=== PATIENT | female | born 1990 | race Two or more races ===

== ENCOUNTER → 2023-10-13 10:56 | Outpatient (BNVA) | payer SELFPAY | PROVIDERS: PCP Emergency Medicine ==

== ENCOUNTER 2023-10-26 18:02 | Emergency (ER) | payer MEDICAID, SELFPAY ==
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
[2023-10-26 18:03] VITALS: BP 149/86; PULSE 100; RESP 18; TEMP 36.7; O2SAT 100; BMI 30.9
[2023-10-26 22:52] VITALS: BP 127/82; PULSE 90; RESP 18; TEMP 36.7; O2SAT 99
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
[2023-10-27 02:23] VITALS: BP 122/74; PULSE 74; RESP 18; TEMP 36.8; O2SAT 100
[2023-10-27] MEDS: Ibuprofen 800 MG TABLET PO (02:41)
[2023-10-27 02:43] VITALS: BP 122/74; PULSE 74; RESP 18; TEMP 36.8
== END 2023-10-27 02:44 | disposition home or self-care (01) ==
PROVIDERS: Emergency Provider Student in an Organized Health Care Education/Training Program
DX: S09.90XA Unspecified injury of head, initial encounter (principal); Y04.2XXA Assault by strike against or bumped into by another person, initial encounter; Y93.9 Activity, unspecified; Y92.512 Supermarket, store or market as the place of occurrence of the external cause; Y99.9 Unspecified external cause status
CPT/HCPCS: 70450; 70486; 72125; 99283; 99284

== ENCOUNTER 2024-06-13 12:22 | Emergency (ER) | payer MEDICAID, SELFPAY ==
--- NOTE | ~2024-06-13 | US_ITS ---
EXAMINATION: ULTRASOUND OF THE PELVIS CLINICAL INFORMATION: Pelvic pain. Acute findings on CT. COMPARISON: CT scan of the abdomen and pelvis dated 06/13/2024. TECHNIQUE: Transabdominal and transvaginal pelvic ultrasound. A transvaginal study was performed in addition to the transabdominal study which did not yield an adequate examination of the uterus and ovaries due to superimposed distended gas-filled loops of bowel. FINDINGS: Uterus: The uterus is anteverted and normal in size and appearance, measuring 7.8 x 3.8 x 4.9 cm. The endometrial stripe thickness is normal, measuring 0.3 cm in thickness. There is a small amount of free fluid in the endometrial cavity. There is a 0.7 x 0.3 x 0.6 cm echogenic endometrial mass in the mid uterine body, corresponding to the CT scan findings and most consistent with a endometrial polyp. With color Doppler imaging, no abnormal vascular flow to the echogenic mass is noted. No focal myometrial mass is seen. The cervical length is normal. Small nabothian cysts are seen in the cervix. Ovaries: The ovaries bilaterally are visualized and appear normal in size, with the right ovary measuring 3.2 x 1.8 x 2 cm (6 mL volume) and the left ovary measuring 2.9 x 1.8 x 2.4 cm (6.6 mL volume). There is a 1.2 x 1.1 x 1.3 cm hypoechoic circumscribed mass in the right ovary with thick echogenic oscar and a eccentric nodular echogenic shadowing focus, corresponding to the CT scan findings. 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 Other: No adnexal mass or free fluid collection seen. US/US pelvic and transvaginal IMPRESSION: * Echogenic endometrial mass is seen, most consistent with an endometrial polyp. Subspecialty TITLE I PARAPROFESSIONAL consult is recommended in the nonemergent setting. * Small amount of free fluid is seen in the endometrial cavity. * Left ovary normal. * No evidence of ovarian torsion at this time. Electronically signed by: Anastasia Pedro MD 06/13/2024 07:40 PM [facility]
--- NOTE | ~2024-06-13 | CT_ITS ---
EXAMINATION: CT ABDOMEN AND PELVIS WITH CONTRAST CLINICAL INFORMATION: 34-year-old female with right lower quadrant abdominal pain COMPARISON: None available. TECHNIQUE: Multidetector volumetric images were obtained from the superior aspect of the liver through the pubic symphysis following administration 85 mL of Omnipaque 350 intravenous contrast. Sagittal and coronal reformatted images were obtained on the technologist's workstation. Oral contrast: No This CT examination was performed using dose optimization techniques as appropriate, variously including the following: *Automated exposure control *Adjustment of mA and/or kV according to patient size (this includes techniques or standardized protocols for targeted exams where dose is matched to indication/reason for exam; i.e. extremities or head) *Use of iterative reconstruction technique DLP: 632 mGy-cm FINDINGS: LUNG BASES: The visualized lung bases are unremarkable. LIVER, GALLBLADDER, AND BILIARY TREE: The liver is normal in size, shape, and attenuation. No focal hepatic lesion or biliary ductal dilatation is present. The gallbladder is unremarkable with no evidence of radiopaque gallstones, gallbladder wall thickening, or obvious pericholecystic inflammatory changes. PANCREAS: Unremarkable. SPLEEN: Unremarkable. ADRENAL GLANDS: Unremarkable. KIDNEYS AND URETERS: The kidneys are normal in size, shape, and attenuation. No hydronephrosis, hydroureter, or calculi seen. No perinephric stranding. BLADDER: Unremarkable. GASTROINTESTINAL TRACT: The small and large bowel are unremarkable. The appendix is unremarkable. ABDOMINAL WALL: No significant hernia is appreciated. LYMPH NODES: Normal. VASCULAR: Unremarkable. PELVIC VISCERA: Uterus is unremarkable. There is fat-containing lesion in the right adnexa most likely small dermoid , there fat-containing lesion measured 0.9 cm. There is trace of fluid in the right adnexa and minimal stranding of fat in cul-de-sac OSSEOUS STRUCTURES: Unremarkable. CT/CT abdomen pelvis w IV con IMPRESSION: Fat containing dermoid in the right adnexa with minimal. Ovarian and cul-de-sac stranding calcified polyp. Correlate with pelvic ultrasound Fleischner guidelines were followed. Electronically signed by: Nader Munguia MD 06/13/2024 04:32 PM [facility]
[2024-06-13 12:34] VITALS: BP 137/84; PULSE 68; RESP 16; TEMP 36.6; O2SAT 100; BMI 28.1
--- NOTE | 2024-06-13 12:34 | ED_ITS ---
HPI - Abdominal Pain General Chief Complaint: Abdominal Pain Stated Complaint: stomach pain Time Seen by Provider: 06/13/24 14:40 Source: patient Mode of arrival: ambulatory Limitations: no limitations History of Present Illness ED Provider: Valdemar TOLENTINO HPI narrative: This is a 34-year-old female presenting to the emergency department complaints of abdominal pain x3 days. Patient is predominantly in the umbilicus and right lower quadrant region. She reports associated fatigue, malaise, nausea, lightheadedness, diffuse headache (without visual changes, weakness, trauma). Pain has been progressively worsening which is what prompted her to come in today. She denies fevers, chills, chest pain, shortness of breath, vision changes, weakness, head trauma, blood in stool or vomit, changes in bowel habits or urinary habits. Does not think she is Related Data Previous Rx's ?Medication ?Instructions ?Recorded naproxen 500 mg tablet 500 mg PO BID PRN pain 7 days #14 10/27/23 tabs ketorolac 10 mg tablet 10 mg PO TID PRN pain 5 days #15 06/13/24 tabs Allergies Allergy/AdvReac Type Severity Reaction Status Date / Time No Known Allergies Allergy Verified 06/13/24 12:35 Review of Systems Review of Systems Yes all other systems are reviewed and are negative PMFSH Past Medical History Attestation statement: The following information was validated with the patient. Source: old records reviewed and nursing notes reviewed Social History Social History Alcohol intake: unknown Smoked in Last 30 Days: No Use of substances other than those prescribed or required for medical reasons: No Advance Directives: No Advance Directives Information Provided: Yes Do you have a plan to hurt others: No Plan Patient : No Physical Exam ED Vital Signs: Vital Signs - 24 hr 06/13/24 12:34 06/13/24 18:21 06/13/24 20:29 Temperature 97.8 F 98.1 F Pulse Rate 68 64 63 Respiratory Rate 16 20 17 Blood Pressure 137/84 111/64 99/58 L Pulse Oximetry 100 100 100 Oxygen Delivery Method Room Air Room Air Room Air BMI result Body Mass Index 28.1 vss Appearance: Alert.? Oriented X3.? No acute distress.? Head: Normocephalic, atraumatic, no step-offs or deformities Eyes: Pupils equal, round and reactive to light.? Neck: Normal inspection.? Neck supple.? CVS: Normal heart rate and rhythm.? Pulses normal.? Respiratory: No respiratory distress.? Breath sounds normal.? Abdomen: Soft and diffusely tender abdomen around umbillicus and RLQ .? Skin: Skin warm and dry.? Normal skin color.? Normal skin turgor.? Extremities: No lower extremity edema.? No calf ttp. 5/5 strength to bilateral upper and lower extremities Neuro: Oriented X 3.? No motor deficit.? No sensory deficit. CN 2-12 intact Course Course Course Narrative: This is an RME: Additional HPI, ROS, PE not included below will be deferred to primary provider. RME assessment and note performed by: Elizabeth Barbour PA-C This is a 44-lyth-isg-female who presents to the ER with complaints of abdominal pain x 2 days. Reports the pain starts in her umbilical region and radiates to the RLQ. Pain is intermittent. No vomiting. Reporting headaches and dizziness. No diarrhea. No urinary symptoms. She started her menses on 06/11. Plan: Labs, UA, further ER eval needed. Likely needs diagnostic imaging but will defer until seen by primary provider. Reevaluation(s) Reevaluation #1: Patient's CBC unremarkable. Chemistry with no acute findings needing intervention. Beta hCG negative. Lipase normal. UA without infection. Moderate amount of blood. Will rule out kidney stone with CT. Flu, COVID, RSV negative. CT scan pending. Time: 15:58 Reevaluation #2: Sign out to Elli Time: 16:22 Reevaluation #3: Jerome Vanegas PA-C have accepted care of the patient at signed out pending CT scan and final disposition I have independently reviewed the following tests: CT abdomen and pelvis: CT/CT abdomen pelvis w IV con IMPRESSION: Fat containing dermoid in the right adnexa with minimal. Ovarian and cul-de-sac stranding calcified polyp. Correlate with pelvic ultrasound Fleischner guidelines were followed. Electronically signed by: Nader Munguia MD 06/13/2024 04:32 PM [facility] Adding a transvaginal ultrasound we will update the patient Time: 18:17 Additional Reevaluation(s): US/US pelvic and transvaginal IMPRESSION: * Echogenic endometrial mass is seen, most consistent with an endometrial polyp. Subspecialty [employer] consult is recommended in the nonemergent setting. * Small amount of free fluid is seen in the endometrial cavity. * Left ovary normal. * No evidence of ovarian torsion at this time. Electronically signed by: Anastasia Pedro MD 06/13/2024 07:40 PM [facility] Patient has follow up with her [employer] consultant already pending for July, this is ideal. She understands that their office can access records. We will send with ketorolac for her to use at home for her discomfort. Medical Decision Making Medical Decision Making [facility] Narrative: 34-year-old female presents with right-sided abdominal pain and pain around the umbilicus also reporting headache, dizziness, nausea. Physical exam Soft and diffusely tender abdomen around umbillicus and RLQ .? History and physical exam concerning for appendicitis versus gastroenteritis versus abdominal cramping. Unlikely cholecystitis, cholangitis, choledocholithiasis, pancreatitis, diverticulitis, obstruction, acute abdomen. I do not suspect ovarian torsion, ectopic Plan labs, imaging, urine, test. Differential Diagnosis Differential Diagnoses: The differential diagnosis associated with the presentation includes (History and physical exam concerning for appendicitis versus gastroenteritis versus abdominal cramping. Unlikely cholecystitis, cholangitis, choledocholithiasis, pancreatitis, diverticulitis, obstruction, acute abdomen. I do not suspect ovarian torsion, ectopic ) Admission/Observation Consideration of admission/observation: Escalation of care including admission/observation considered (Possible) Lab Data [facility] Lab Attestation statement: I reviewed the patient's lab results. 06/13/24 13:10 06/13/24 13:10 Labs: Lab Results 06/13/24 Range/Units 13:10 WBC 6.6 (4.8-10.8) X10*3/uL RBC 4.50 (4.20-5.50) X10*6/uL Hgb 14.0 (12.0-16.0) g/dl Hct 39.7 (37.0-47.0) % MCV 88.2 (80.0-98.0) fL MCH 31.1 (27.0-33.0) pg MCHC 35.3 H (31.0-35.0) g/dl RDW 11.6 (11.0-16.0) % Plt Count 345 (160-400) X10*3/uL MPV 9.6 (9.4-12.3) fL Immature Gran % (Auto) 0.0 (0.0-0.4) % Neut % (Auto) 58.3 (45-73) % Lymph % (Auto) 29.5 (20-40) % [place] % (Auto) 9.9 (2-11) % Eos % (Auto) 1.8 (0-4) % Baso % (Auto) 0.5 (0-2) % Lymph # (Auto) 2.0 (1.2-4.9) X10*3/uL [place] # (Auto) 0.7 (0.1-1.2) X10*3/uL Eos # (Auto) 0.1 (0.0-0.4) X10*3/uL Baso # (Auto) 0.0 (0.0-0.2) X10*3/uL Abs Immat Gran (auto) 0.00 (0.00-0.03) X10*3/uL Absolute Neuts (auto) 3.9 (2.0-8.3) x10*3/uL Absolute Nucleated RBC 0.000 (0.0-0.012) X10*3/uL Nucleated RBC % (auto) 0.0 (0.0-0.2) /100WBC Sodium 143 (135-145) mmol/L Potassium 3.4 (3.3-5.1) mmol/L Chloride 110 H (96-108) mmol/L Carbon Dioxide 24 (22-29) mmol/L Anion Gap 12 (12-20) BUN 7 L (9-16) mg/dL Creatinine 0.71 (0.5-1.4) mg/dL Estim Creat Clear Calc 123.7 Estimated GFR > 60 Random Glucose 97 (60-115) mg/dL Calcium 9.4 (8.4-10.2) mg/dL Magnesium 2.1 (1.6-2.6) mg/dL Total Bilirubin 0.4 (0.0-1.0) mg/dL Direct Bilirubin 0.1 (0.0-0.5) mg/dL AST 24 (5-31) U/L ALT 20 (0-31) U/L Alkaline Phosphatase 71 (39-117) U/L Total Protein 7.4 (6.5-8.0) g/dL Albumin 4.4 (3.5-5.0) g/dL Lipase 21 (8-78) U/L Beta HCG, Quant < 2 mIU/mL Urine Color Yellow Urine Appearance Clear Urine pH 6.0 (5.0-9.0) Ur Specific [place] 1.015 (1.005-1.025) Urine Protein Negative (Neg-Trace) mg/dL Urine Glucose (UA) Negative (Negative) mg/dL Urine Ketones Negative (Negative) mg/dL Urine Blood Moderate (2+) H (Negative) Urine Nitrite Negative (Negative) Ur Leukocyte Esterase Negative (Negative) Urine RBC 11-20 H (0-2) /HPF Urine WBC 0-5 (0-5) /HPF Ur Squamous Epith Cells 0-2 (0-2) /HPF Urine Bacteria None Seen (None Seen) Hyaline Casts 0-2 (0-2) /LPF Influenza Type A (PCR) NEGATIVE (Negative) Influenza Type B (PCR) NEGATIVE (Negative) RSV RNA Qual (PCR) NEGATIVE (Negative) SARS-CoV-2 RNA (RT-PCR) NEGATIVE (Negative) Independent Interpretation I performed an independent interpretation of an: CT Scan Radiology Impression Discussion of test interpretation with radiology: I have reviewed the radiologist's reading. External Record Review External record reviewed: Prior outpatient labs Chronic Conditions Denies Medications Administered Discontinued Medications Generic Name Dose Route Start Last Admin Trade Name Freq PRN Reason Stop Dose Admin Iohexol 100 ml 06/13/24 15:52 06/13/24 15:53 Iohexol 350 Mg/Ml 100 Ml Infus..Btl IV 06/13/24 15:53 85 ml ONCE ONE Administration Ketorolac Tromethamine 30 mg 06/13/24 15:59 06/13/24 16:08 Ketorolac Tromethamine 15 Mg/Ml Vial IVPUSH 06/13/24 16:00 30 mg ONCE ONE Administration Critical Care Time Critical Care Time Critical Care Time: Yes Total Critical Care Time: 35 Attestation: I attest to this time spent taking care of the patient, obtaining history, physical, reviewing labs, imaging, treatment of patients condition +/- specialist/hospitalist consult Discharge Plan Discharge Clinical Impression: Abdominal pain, Endometrial polyp, Dermoid cyst Patient Disposition: Home, Self-Care Instructions: Abdominal Pain (ED), Endometrial Polyps (DC) Additional Instructions: Take your medications as prescribed. If you were prescribed antibiotics today, it is important that you take your medication to their entirety, do not skip any doses, do not finish them early. Follow-up with your primary care provider this week. Return to the emergency department with new or worsening symptoms. Such as fevers, chills, chest pain, shortness of breath, nausea, vomiting, dizziness, headache, vision changes, lethargy In case of emergency call 911 Toradol has been sent to your pharmacy, you tolerated this well in the department. Please take this as prescribed do not take this with ibuprofen, or other NSAIDs, do not mix this with alcohol. Side effects of this medication including increased risk for bleeding and possible kidney injury. The transvaginal ultrasound revealed that you have a dermoid cyst and an endometrial polyp. You need to follow up with your [employer] consultant, it is ideal that you have a pending appointment in July. Your [employer] consultant can access the imaging that we obtained today. Prescriptions: New ketorolac 10 mg tablet 10 mg PO TID PRN (Reason: pain) 5 Days Qty: 15 0RF Rx Instructions: Tolerated IM or IV in department No Action naproxen 500 mg tablet 500 mg PO BID PRN (Reason: pain) 7 Days Qty: 14 0RF Referrals: Physician,Unknown J [Primary Care Provider] - 2 days Print Language: Hungarian
[2024-06-13 13:17] LABS: MANUAL DIFF FLAG NO
[2024-06-13 13:22] LABS: Basophils Percent Auto 0.5 % (0-2); Eosinophils Absolute Auto 0.1 X10*3/uL (0.0-0.4); Eosinophils Percent Auto 1.8 % (0-4); Hematocrit 39.7 % (37.0-47.0); Lymphocytes Percent Auto 29.5 % (20-40); Mean Corpuscular HGB Conc 35.3 g/dl (31.0-35.0); Mean Corpuscular Hemoglobin 31.1 pg (27.0-33.0); Mean Corpuscular Volume 88.2 fL (80.0-98.0); Mean Platelet Volume 9.6 fL (9.4-12.3); Monocytes Absolute Auto 0.7 X10*3/uL (0.1-1.2); Monocytes Percent Auto 9.9 % (2-11); Neutrophils Absolute Auto 3.9 x10*3/uL (2.0-8.3); Neutrophils Percent Auto 58.3 % (45-73); Platelet Count 345 X10*3/uL (160-400); Red Cell Distribution Width 11.6 % (11.0-16.0); White Blood Count 6.6 X10*3/uL (4.8-10.8)
[2024-06-13 13:23] LABS: Appearance Urine Clear; Color Urine Yellow; Glucose Urine UA Negative (Negative); Leukocyte Esterase Urine Negative (Negative); Nitrite Urine Negative (Negative); Specific Gravity - Urine 1.015 (1.005-1.025); UMIC TRIGGER UACC YES; Urine Blood Moderate (2+) (Negative); Urine Ketones Negative (Negative); Urine Protein Negative (Neg-Trace)
[2024-06-13 13:35] LABS: Bacteria Urine None Seen (None Seen); Hyaline Casts Urine 0-2 /LPF (0-2); Squamous Epithelial Cell Urine 0-2 /HPF (0-2); WBC Urine 0-5 /HPF (0-5)
[2024-06-13 13:36] LABS: Alanine Aminotransferase 20 U/L (0-31); Albumin Level 4.4 g/dL (3.5-5.0); Alkaline Phosphatase 71 U/L (39-117); Anion Gap 12 (12-20); Aspartate Amino Transferase 24 U/L (5-31); Bilirubin Direct 0.1 mg/dL (0.0-0.5); Bilirubin Total 0.4 mg/dL (0.0-1.0); Blood Urea Nitrogen 7 mg/dL (9-16); Calcium 9.4 mg/dL (8.4-10.2); Carbon Dioxide 24 mmol/L (22-29); Chloride 110 mmol/L (96-108); Creatinine Clr Calc Pharmacy 123.7; Estimated Glomerular Filt Rate > 60; Glucose Random 97 mg/dL (60-115); Lipase 21 U/L (8-78); Magnesium 2.1 mg/dL (1.6-2.6); Potassium 3.4 mmol/L (3.3-5.1); Sodium 143 mmol/L (135-145); Total Protein 7.4 g/dL (6.5-8.0)
[2024-06-13 13:59] LABS: Influenza A PCR NEGATIVE (Negative); Influenza B PCR NEGATIVE (Negative); Resp Syncy Virus RNA Qual PCR NEGATIVE (Negative); SARS COV2 PCR INHOUSE NEGATIVE (Negative)
[2024-06-13 15:33] LABS: HCG Quantitative < 2 mIU/mL
[2024-06-13] MEDS: iohexoL 350 MG/ML 100 ML INFUS..BTL IV (15:53)
[2024-06-13] MEDS: Ketorolac Tromethamine 15 MG/ML VIAL 30 MG IVPUSH (16:08)
[2024-06-13 18:21] VITALS: BP 111/64; PULSE 64; RESP 20; TEMP 36.7; O2SAT 100
--- NOTE | 2024-06-13 18:38 | PC.NURSE ---
MARGARITO Vanegas to bedside- pt to have US for further evaluation
[2024-06-13 20:29] VITALS: BP 99/58; PULSE 63; RESP 17; O2SAT 100
[2024-06-13 21:44] VITALS: BP 103/56; PULSE 54; RESP 16; TEMP 36.7; O2SAT 100
[2024-06-13 22:09] VITALS: BP 103/56; PULSE 54; RESP 16; TEMP 36.7; O2SAT 100
== END 2024-06-13 22:10 | disposition home or self-care (01) ==
PROVIDERS: Physician Assistant; Physician Assistant Medical; Emergency Provider Emergency Medicine Emergency Medical Services
DX: R10.2 Pelvic and perineal pain (principal); R10.31 Right lower quadrant pain; R11.0 Nausea; R51.9 Headache, unspecified; Z79.899 Other long term (current) drug therapy; Z03.818 Encounter for observation for suspected exposure to other biological agents ruled out
CPT/HCPCS: 0241U; 74177; 76830; 76856; 80048; 80076; 81001; 83690; 83735; 84702; 85025; 96374; 99284; J1885; Q9967

== ENCOUNTER → 2024-11-11 10:48 | Outpatient (BNVA) | payer OTHER, SELFPAY | PROVIDERS: Visit Provider Physician Assistant | DX: Z77.21 Contact with and (suspected) exposure to potentially hazardous body fluids (principal) | CPT/HCPCS: 84450; 84460; 84702; 85025; 86706; 86803; 87389; 99204 ==

== ENCOUNTER → 2024-11-15 15:03 | Outpatient (BNVA) | payer OTHER, SELFPAY | PROVIDERS: Visit Provider Physician Assistant Medical | DX: Z77.21 Contact with and (suspected) exposure to potentially hazardous body fluids (principal); Z02.79 Encounter for issue of other medical certificate | CPT/HCPCS: 99213 ==

== ENCOUNTER → 2024-11-30 15:05 | Outpatient (BNVA) | payer OTHER, SELFPAY | PROVIDERS: Visit Provider Physician Assistant Medical | DX: Z77.21 Contact with and (suspected) exposure to potentially hazardous body fluids (principal); Z02.79 Encounter for issue of other medical certificate | CPT/HCPCS: 82150; 82565; 84450; 84460; 85025; 99213 ==

== ENCOUNTER → 2024-12-29 15:31 | Outpatient (BNVA) | payer OTHER, SELFPAY | DX: Z77.21 Contact with and (suspected) exposure to potentially hazardous body fluids (principal); Z02.79 Encounter for issue of other medical certificate | CPT/HCPCS: 84450; 84460; 87389; 99211 ==

== ENCOUNTER → 2025-02-14 15:47 | Outpatient (BNVA) | payer OTHER, SELFPAY | DX: Z77.21 Contact with and (suspected) exposure to potentially hazardous body fluids (principal); Z02.79 Encounter for issue of other medical certificate | CPT/HCPCS: 84450; 84460; 86803; 87389; 99211 ==

== ENCOUNTER 2025-05-13 11:53 | Outpatient (REF) | payer OTHER, SELFPAY ==
--- OUTSIDE RECORDS SUMMARY | 2025-05-13 13:20 | XMS_ITS | Clinical Summary ---
Author Organization [facility] Address [address] [place] [address] Care Team Providers Care Enchilada Maker Name Role Phone Edmond Galvan PHARMACIST'S AIDE Primary Care Provider [phone] Source Comments PLEASE NOTE, if this patient is a minor, it may be UNLAWFUL to discuss sensitive information that is contained in these records (such as FAMILY PLANNING, MENTAL HEALTH or SUBSTANCE ABUSE) with the minor patient's parent or other person without the patient's specific authorization.[facility] Allergies No known active allergies Medications acetaminophen (TYLENOL) 500 mg tabletIndication s:Neck pain Take 1 Tablet by mouth every 6 (six) hours as needed for pain 50 Tablet 1 05/31/2024 Active ibuprofen 600 mg tablet Take 1 Tablet by mouth every 6 (six) hours as needed for pain 30 Tablet 1 10/11/2024 Active emtricitabine-te nofovir, TDF, (TRUVADA) 200-300 mg per tablet Take 1 Tablet by mouth once daily 11/11/2024 Active Active Problems Problem Noted Date Diagnosed Date Endometrial polyp 06/16/2024 Overview (06/16/2024): 06/13/24 Noted on imaging at [facility], needs [employer] f/u. Papanicolaou smear 10/25/2021 Overview (10/25/2021): Pap smear 10/22/21 NILM Neg HPV. Findings of BV. Repeat in 5 years. Immune to varicella 10/21/2019 Refugee health examination 10/18/2019 Resolved Problems Problem Noted Date Diagnosed Date Resolved Date Impacted cerumen of right ear 10/22/2021 11/21/2021 Other insomnia 02/21/2020 10/22/2021 Cervical paraspinal muscle spasm 12/20/2019 10/22/2021 Immunizations Immunization Administration Dates Next Due Flu, Preservative Free 10/22/2021,10/18/2019 Hep B, Adult/Adol (MEAMSUS-R-TTMJC/RECOMBIVAX-AD ULT) 12/20/2019 Hep B,adult,adjuvanted (HEPLISAV) 10/22/2021 MMR (MMR II/Priorix) 12/20/2019 TDAP 12/20/2019 Td (adult),2 Lf tetanus toxo id (TDVAX), preservative free 10/22/2021 Family History Medical History Relation Name Comments No Known Problems Brother 1 No Known Problems Brother 2 No Known Problems Father No Known Problems Mother No Known Problems Sister 1 No Known Problems Sister 2 No Known Problems Sister 3 No Known Problems Sister 4 No Known Problems Sister 5 No Known Problems Son 1 No Known Problems Son 2 Cancer Neg Diabetes Neg Heart attack Neg Stroke Neg Relation Name Status Comments Brother 1 Alive Brother 2 Alive Father Mother Sister 1 Alive Sister 2 Alive Sister 3 Alive Sister 4 Alive Sister 5 Alive Son 1 Alive Son 2 Alive Social History Tobacco Use Types Packs/Day Years Used Date Smoking Tobacco: Never Smokeless Tobacco: Never Tobacco Cessation:Counseling Given: Not Answered Alcohol Use Standard Drinks/Week Comments Never 0 (1 standard drink = 0.6 oz pur e alcohol) Social Connections Answer Date Recorded Connectedness 0 04/14/2024 Financial Resource Strain Answer Date R ecorded Financial Resource Strain 0 2019 Stress Answer Date Recorded Stress 0 10/18/2019 Physical Activity Answer Date Recorded Physical Activity 0 10/18/2019 Food Insecurity Answer Date Recorded Food 0 05/06/2024 Transportation Needs Answer Date Record ed Transportation 0 10/18/2019 Housing Stability Answer Date Recorded Housing 0 10/18/2019 Safety and Environment Answer Date Oziel rded How often does anyone, inclu ding family and friends, physically hurt you? 1 05/07/2024 Utilities Answer Date Recorded Utilities 0 10/18/2019 Employment Answer Date Recorded Stress 0 10/29/2021 Comments No Sex and Gender Information Value Date Recorded Sex Assigned at Female 10/18/2019 10:46 AM PDT Legal Sex Female 11:01 AM PST Gender Identity Female 10/18/2019 10:46 AM PDT Sexual Orientation Straight 10/18/2019 10 :46 AM PDT Last Filed Vital Signs Vital Sign Reading Time Taken Comments Blood Pressure 106/76 10/11/2024 4:47 PM EST Pulse 75 10/11/2024 4:47 PM EST Temperature 36.6 C (97.8 F) 10/11/2024 4:47 PM EST Respiratory Rate 16 10/11/2024 4:47 PM EST Oxygen Saturation 97% 10/11/2024 4:47 PM EST Inhaled Oxygen Concentration - - Weight 82.6 kg (182 lb) 10/11/2024 4:47 PM EST Height 160 cm (5' 3 ) 10/11/2024 4:47 PM EST Body Mass Index 32.24 10/11/2024 4:47 PM EST Plan of Treatment Upcoming Encounters Date Type Department Care Team (Late st Contact Info) Description 06/07/2025 3:40 PM EDT Office Visit [facility] [address] [place] [id number] Ron Watkins, [address] [place] [address] Health Maintenance Due Date Last Done Comments HPV Screening 1991 Imm-HPV (1 - 3-dose SCDM series) 2018 Imm-Hepatitis B (3 of 3 - 19 + 3-dose series) 12/17/2021 10/22/2021, 12/20/2019 Annual Wellness (Adult): Ind icated (All Coverage) 10/22/2022 10/22/2021 Alcohol and Drug Screen 08/11/2024 05/07/2024, 10/22 Depression Annual Screen 08/11/2024 05/07/2024 Pap Smear 10/22/2024 10/22/2021 Imm-Influenza (#1) 2025 04/07/2024, 0 10/22/2021, 10/18/2019 Anxiety Screening 05/07/2025 05/07/2024 Relationship Safety Screening/Counseling 05/07/2025 05/07/2024, 10/22/2021 Hypertension Screening (#1) 10/11/2025 Tobacco Screening 10/11/2025 10/11/2024 Dental BW 11/03/2025 11/01/2024, 0809/2023, 09/22/2023 Dental Examination 11/03/2025 11/01/2024, 0 03/22/2024, 09/22/2023 Dental Perio Charting 11/03/2025 11/01/2024 Dental Prophy 11/03/2025 11/01/2024, 0809/2023, 09/22/2023 Cervical Cancer Screening 10/22/2026 Pap + HPV 10/22/2026 10/22/2021 Lipid Screening 06/05/2027 06/05/2024 Dental FMX/Pano 09/24/2028 09/22/2023 Imm-DTaP/Tdap/Td (3 - Td or Tdap) 10/23/2031 022, 12/20/2019 HIV Screening Completed 10/18/2019 Hepatitis C Screening Completed 10/22/2021 [id number] Completed 04/07/2024, 01/10, 01/04/2021 Cervical Ablation/Cold-Knife Conization Discontinued Cervical Cryotherapy Discontinued Colposcopy Discontinued Endometrial Biopsy Discontinued Excision/Leep Discontinued HPV Genotyping Discontinued Vaginal Pap Discontinued Vulvoscopy Discontinued Procedures Procedure Name Priority Date/Time Associated Diagnosis Comments COMP PERIODONTAL EVALUATION - NEW/EST PATIENT Routine 11/01/2024 4:20 PM EDT Encounter for dental examination BITEWINGS - FOUR RADIOGRAPHIC IMAGES Routine 11/01/2024 4:20 PM EDT Encounter for dental examination PROPHYLAXIS - ADULT Routine 11/01/2024 4 :20 PM EDT Encounter for dental examination PERIODIC ORAL EVALUATION ESTABLISHED PATIENT Routine 11/01/2024 4:20 PM EDT Encounter for dental examination LIPIDS W RFLX TO DIRECT LDL Routine 06/05/2024 9:19 AM EDT Routine general medical examination at a health care facility INTRAORAL - COMP SERIES OF RADIOGRAPHIC IMAGES Routine 09/22/2023 3:00 PM EST Caries of enamel (incipient) HEPATITIS C AB W/RFLX HCV RNA, QT, RT PCR Routine 10/22/2021 10:51 AM EDT Encounter for hepatitis C screening test for low risk patient THIN PREP IMAGE PAP + HPV RNA E6/E7 W/RFLX HPV 16, 18/45 Routine 10/22/2021 10:10 AM EDT Encounter for screening for cervical cancer ANTIBODY HIV-1&HIV-2 SINGLE RESULT Routine 10/18/2019 2:25 PM EDT Refugee health examination from Last 3 Months or Most Recently Relevant to Health Maintenance Results * LIPIDS W RFLX TO DIRECT LDL (06/05/2024 9:19 AM EDT) CHOLESTEROL, TOTAL 154 <200 mg/dL [facility] HDL CHOLESTEROL 58 > OR = 50 mg/dL [facility] TRIGLYCERIDES 55 <150 mg/dL [facility] LDL-CHOLESTEROL 82 99 mg/dL (calc) [facility] Comment: Reference range: <100 Desirable range <100 mg/dL for primary prevention; <70 mg/dL for patients with CHD or diabetic patients with > or = 2 CHD risk factors. LDL-C is now calculated using the Donald-Erica calculation, which is a validated novel method providing better accuracy than the Friedewald equation in the estimation of LDL-C. Donald SS et al. INGRID. 2013;310(19): 8702-4298 (http://education.[employer]osoft/faq/HIL067) CHOL/HDLC RATIO 2.7 <5.0 (calc) [facility] NON-HDL CHOLESTEROL 96 <130 mg/dL (calc) [facility] Comment: For patients with diabetes plus 1 major ASCVD risk factor, treating to a non-HDL-C goal of <100 mg/dL (LDL-C of <70 mg/dL) is considered a therapeutic option. Blood Blood / Unknown 06/05/2024 9 :19 AM EDT 06/05/2024 9:20 AM EDT Narrative [facility] - 06/06/2024 6:05 AM EDT FASTING:YES Domingo Maxwell [employer] [facility] - BLOOD DRAW Final Resul t [facility] [address] [address], [employer] [address] [place] [address] * HEPATITIS C AB W/RFLX HCV RNA, QT, RT PCR (10/22/2021 10:51 AM EDT) HEPATITIS C ANTIBODY NON-REACT JORDY NON-REACT JORDY [employer] SIGNAL TO CUT-OFF 0.01 <1.00 [employer] Comment: HCV antibody was non-reactive. There is no laboratory evidence of HCV infection. In most cases, no further action is required. However, if recent HCV exposure is suspected, a test for HCV RNA (test code 57628) is suggested. For additional information please refer to http://education.USER[employer] Technology/faq/TSZ87h3 (This link is being provided for informational/ educational purposes only.) Blood Blood / Unknown 10/22/2021 1 0:51 AM EDT 10/22/2021 10:51 AM EDT [facility] - BLOOD DRAW Final Re sult [employer] [address] [address], [employer] [address] [address] * THIN PREP IMAGE PAP + HPV RNA E6/E7 W/RFLX HPV 16, 18/45 (10/22/2021 10:10 AM EDT) Pathologist [facility] CLINICAL INFORMATION See Note [employer] Comment:Routine exam LMP See Note [employer] Comment:[id number] PREV. PAP See Note [employer] Comment:NONE GIVEN PREV. BX See Note [employer] Comment:NONE GIVEN SOURCE See Note [employer] Comment:Cervix STATEMENT OF ADEQUACY See Note [employer] Comment: Satisfactory for evaluation. Endocervical/transformation zone component absent. Partially obscuring inflammation INTERPRETATION/RESU LT See Note [employer] Comment:Negative for intraep ithelial lesion or malignancy. INFECTION See Note [employer] Comment: Shift in vaginal andres suggestive of bacterial vaginosis. COMMENT See Note [employer] Comment: This Pap test has been evaluated with computer assisted technology. STITCHDOWNS TOE FORMER See Note [facility] [employer] Comment: [facility], CT(ASCP) CT screening location: [place] [address] COMMENT [facility] HPV MRNA E6/E7 Not Detected Not Detected [facility] Comment: Methodology: Pensions Retirement Plan Specialist-Mediated Amplification This assay detects E6/E7 viral messenger RNA (mRNA) from 14 high-risk HPV types (16,18,31,33,35,39,45,51,52,56,58,59,66,68). The analytical performance characteristics of this assay have been determined by [employer]. The modifications have not been cleared or approved by the FDA. This assay has been validated pursuant to the CLIA regulations and is used for clinical purposes. For additional information, please refer to http://education.USERJOY Technology/faq/HZR006w3 (This link if provided for information/ educational purposes only.) Cervix Cervix uteri structure / Unknown 10/22/2021 10:10 AM EDT 10/23/2021 5:59 AM EDT Narrative [facility] - 10/24/2021 12:27 PM EDT EXPLANATORY NOTE: The Pap is a screening test for cervical cancer. It is not a diagnostic test and is subject to false negative and false positive results. It is most reliable when a satisfactory sample, regularly obtained, is submitted with relevant clinical findings and history, and when the Pap result is evaluated along with historic and current clinical information. [facility] - PATHOLOGY AND CYTOL OGY AMBULATORY Final Result [facility] [address] [address], [facility] [address] [address] * HIV-1 & HIV-2 ANTIBODIES (10/18/2019 2:25 PM EDT) [facility] HIV 1 AND 2 ANTIBODY SCREEN NEGATIVE NEGATIVE [facility] Comment: This assay is a 4th generation assay allowing for earlier detection of HIV infection by detecting the presence of the HIV-1 p24 antigen as well as the traditional antibodies to HIV type 1 (including group O) and type 2. Use of a 4th generation assay is the current CDC recommendation for HIV screening. Blood specimen (specimen) Blood / Unknown 10/18/2019 2:25 PM EDT 10/18/2019 2:31 PM EDT [facility] - 10/18/2019 8:31 PM EDT [employer], [place] [address] [employer]ing Machine [employer] - Jessica Escalante MD PT ID [id number] ORD# [id number] us Sierra Tim [employer] [facility] - BLOOD DRAW Final Re sult [facility] [employer] [address], [place] [phone] from Last 3 Months or Most Recently Relevant to Health Maintenance Insurance HEALTH SAFETY NET DENTAL ) Member Subscriber Plan / Payer (Ef fective 2024-Present) Name:Winsome Stahl Relation to Subscriber:Self Name:Winsome Stahl Payer ID:[id number] Group ID:Not on file Type:Indemnity Address: [address] [place], [place] [id number] [facility] [place] Care Teams Enchilada Maker Relationship Specialty Start Date End Date Edmond Galvan NP [address] [place] [address] PCP - General Family Medicine, PHARMACIST'S AIDE 06/23/24
[2025-05-13 22:20] LABS: Alanine Aminotransferase 20 U/L (0-31); Aspartate Amino Transferase 25 U/L (5-31)
[2025-05-14 04:38] LABS: HIV Num 1 0.07 S/CO (0.00-0.99); ~HepC Num1 0.08 S/CO (0.00-0.79); ~Hepatitis C Antibody Nonreactive (Nonreactive)
== END 2025-05-13 11:54 | disposition home or self-care (01) ==
LOC: WCCF 11:53
PROVIDERS: Emergency Medicine
DX: Z77.21 Contact with and (suspected) exposure to potentially hazardous body fluids (principal); Z02.79 Encounter for issue of other medical certificate
CPT/HCPCS: 36415; 84450; 84460; 86803; 87389; 99211